=== PATIENT | female | born 1950 | race Caucasian/White ===

== ENCOUNTER 2019-08-09 07:02 | Outpatient (CLI) | payer BC ==
--- NOTE | 2019-08-09 08:03 | ULT ---
BILATERAL RENAL ULTRASOUND WITH RENAL DOPPLER: TECHNIQUE: Grayscale imaging of the kidneys is performed. Color flow, spectral waveform analysis and Doppler leora ging of the kidneys is also performed. HISTORY: Hypertension. COMPARISON: None. FINDINGS: Right kidney: Normal cortical echotexture. No hydronephrosis. Severe renal cortical thinning. Right kidney measurements: 9.1 x 4.3 x 4.4 cm. Left kidney: Normal cortical echotexture. No hydronephrosis severe renal cortical thinning. Left kidney measurements and 10.0 x 5.0 x 5.3 cm. Urinary bladder: Normal mucosa. Renal Doppler: Right renal artery velocity 105.8 cm/s Left renal artery velocity 67.3 cm/s Aorta 78.8 cm/s Right renal artery to aorta ratio: 1.3. Left renal artery to aorta ratio: 0.85. Arcuate artery resistive index: Right kidney: 0.66. Left kidney: 0.70. IMPRESSION: 1. Bilateral renal cortical thinning. 2. No hydronephrosis. 3. Arcuate artery resistive index is within normal limits. Transcribed Date/Time: 08/09/2019 8:43 AM
--- NOTE | 2019-08-09 08:13 | ULT ---
BILATERAL RENAL ULTRASOUND WITH RENAL DOPPLER: TECHNIQUE: Grayscale imaging of the kidneys is performed. Color flow, spectral waveform analysis and Doppler leora ging of the kidneys is also performed. HISTORY: Hypertension. COMPARISON: None. FINDINGS: Right kidney: Normal cortical echotexture. No hydronephrosis. Severe renal cortical thinning. Right kidney measurements: 9.1 x 4.3 x 4.4 cm. Left kidney: Normal cortical echotexture. No hydronephrosis severe renal cortical thinning. Left kidney measurements and 10.0 x 5.0 x 5.3 cm. Urinary bladder: Normal mucosa. Renal Doppler: Right renal artery velocity 105.8 cm/s Left renal artery velocity 67.3 cm/s Aorta 78.8 cm/s Right renal artery to aorta ratio: 1.3. Left renal artery to aorta ratio: 0.85. Arcuate artery resistive index: Right kidney: 0.66. Left kidney: 0.70. IMPRESSION: 1. Bilateral renal cortical thinning. 2. No hydronephrosis. 3. Arcuate artery resistive index is within normal limits. Transcribed Date/Time: 08/09/2019 8:44 AM
[2019-08-09 08:26] LABS: Bilirubin Negative (Negative); Blood, Urine Negative (Negative); Clarity Slightly Cloudy (Clear); Glucose, Urine (Dipstick) Negative (Negative); Leukocyte Negative (Negative); Nitrite Negative (Negative); Protein, Urine (Dipstick) Negative (Neg-Trace); Urobilinogen 0.2 mg/dL (Less than 2)
[2019-08-09 08:32] LABS: Hemoglobin 8.7 g/dL (12.0-16.0)
[2019-08-09 08:40] LABS: Albumin 4.3 g/dL (3.4-4.8); Anion Gap 15 mmol/L (10-20); BUN (Urea Nitrogen) 27 mg/dL (9.8-20.1); Calc. Creatinine Clearance 0 mL/min (70-130); Calcium 10.4 mg/dL (7.8-10.44); Carbon Dioxide 23 mmol/L (23-31); Chloride 111 mmol/L (98-107); Estimated GFR-MDRD 46; Glucose 102 mg/dL (80-115); Phosphorus 3.4 mg/dL (2.3-4.7); Potassium 4.4 mmol/L (3.5-5.1); Sodium 145 mmol/L (136-145)
[2019-08-09 08:42] LABS: RBC/HPF 0-3 HPF (0-3); WBC/HPF 0-3 HPF (0-3)
[2019-08-09 08:43] LABS: Squamous Epithelial 0-3 HPF (0-3)
[2019-08-09 08:44] LABS: Bacteria/HPF Rare-Few HPF (None Seen)
[2019-08-09 10:38] LABS: Creatinine, Urine 157.18 mg/dL (47-110)
[2019-08-10 15:38] LABS: ANA Symphony (Qualitative) Negative (Negative); ANA Symphony (Quantitative) 0.2 Ratio (< 0.7 Negative); dsDNA IgG Antibody 0.5 IU/mL (<10 Negative)
== END 2019-08-09 07:03 | disposition home or self-care (01) ==
LOC: SCSULT 07:02
PROVIDERS: ATTEND Internal Medicine Nephrology
DX: I12.9 Hypertensive chronic kidney disease with stage 1 through stage 4 chronic kidney disease, or unspecified chronic kidney disease (principal); N18.3 Chronic kidney disease, stage 3 (moderate); R60.9 Edema, unspecified
CPT/HCPCS: 36415; 76770; 80048; 81001; 82040; 82306; 82570; 83970; 84100; 84156; 85014; 85018; 86038; 86225; 93975

== ENCOUNTER 2020-08-07 06:20 | Outpatient (CLI) | payer BC ==
[2020-08-07 09:54] LABS: #Eosinphils 0.2 10x3/uL (0.0-0.5); #Monocytes 0.6 10x3/uL (0.0-1.1); #Neutrophils 3.2 10x3/uL (1.5-8.4); %Basophils 0.8 % (0.0-2.0); %Lymphocytes 26.6 % (18.0-47.0); %Monocytes 10.3 % (0.0-10.0); %Neutrophils 59.1 % (40.0-75.0); Hemoglobin 10.8 g/dL (12.0-16.0); Mean Corpuscular Hemoglobin 31.6 PG (27.0-33.0); Mean Corpuscular Volume 90.4 fl (80.0-100.0); Mean Platelet Volume 9.4 fl (7.4-10.4); Platelet Count 261 10x3/uL (130-400); RBC Distribution Width 12.1 % (11.5-14.5); Red Blood Cell (RBC) Count 3.42 10x6/uL (3.90-5.20); White Blood Cell (WBC) Count 5.3 10x3/uL (4.5-11.0)
[2020-08-07 10:01] LABS: ALT (SGPT) 42 U/L (8-55); AST (SGOT) 27 U/L (5-34); Albumin 4.4 g/dL (3.4-4.8); Alkaline Phosphatase 122 U/L (40-110); Bilirubin, Direct 0.1 mg/dL (0.1-0.3); Bilirubin, Total 0.3 mg/dL (0.2-1.2)
[2020-08-07 23:34] LABS: SARS-CoV-2 MS2 Positive; SARS-CoV-2 N Gene Negative; SARS-CoV-2 S Gene Negative; SARS-CoV-2 by NAA Not Detected (NotDetected); SARS-CoV-2 orf1ab Negative
== END 2020-08-07 06:21 | disposition home or self-care (01) ==
LOC: LABBT 06:20
PROVIDERS: ATTEND Surgery
DX: Z01.818 Encounter for other preprocedural examination (principal); Z01.812 Encounter for preprocedural laboratory examination; Z20.828 Contact with and (suspected) exposure to other viral communicable diseases; K80.20 Calculus of gallbladder without cholecystitis without obstruction
CPT/HCPCS: 80076; 85025; 87635; 93005; 93010; U0003

== ENCOUNTER 2020-08-10 06:54 | Day surgery (SDC) | payer BC ==
[2020-08-08 16:33] VITALS: BMI 29.5
[2020-08-10] MEDS ORDERED: Iothalamate Meglumine 60% 50 ML VIAL FS ONE (07:28)
[2020-08-10] MEDS ORDERED: Bupivacaine 0.25% HCL 30 ML VIAL ONE (07:30)
[2020-08-10] MEDS ORDERED: Lidocaine 1% w/Epinephrine 1:100K 20 ML VIAL ONE (07:30)
[2020-08-10] MEDS ORDERED: Midazolam HCl 2 mg/2 ml Vial ONE ×2 (07:31→08:07)
[2020-08-10] MEDS ORDERED: Fentanyl 100 MCG/2 ML VIAL ONE (07:31)
[2020-08-10] MEDS ORDERED: cefOXitin Sodium/Dextrose 2 GM/50 ML BAG ONE (07:41)
--- NOTE | 2020-08-10 09:30 | RAD ---
XR Cholangiogram in Surgery History: Cholangiogram in surgery Comparison: None. Findings: Intraoperative cholangiogram was obtained. Adequate contrast spillage from the common bile duct into the proximal small bowel. No intrahepatic biliary dilatation. Impression: Fluoroscopy for procedure purposes. Total fluoroscopy time: 1 second.
[2020-08-10] MEDS ORDERED: Ondansetron PF 4 MG/2 ML Vial ONE (10:16)
[2020-08-10] MEDS ORDERED: Glycopyrrolate 0.2 MG/ML 5 ML SYRINGE ONE (10:16)
[2020-08-10] MEDS ORDERED: Lidocaine 1% PF 5 ML VIAL ONE (10:16)
[2020-08-10] MEDS ORDERED: PROPOFOL 200 MG/20 ML VIAL ONE (10:16)
[2020-08-10] MEDS ORDERED: Dexamethasone 20 MG/5 ML VIAL ONE (10:16)
[2020-08-10] MEDS ORDERED: Rocuronium Bromide 10 MG/ML (10ML VIAL) ONE (10:16)
[2020-08-10] MEDS ORDERED: HYDROcodone/Acetaminophen 5/325 mg Tablet ONE (11:40)
--- NOTE | 2020-08-12 13:47 | OP ---
DATE OF PROCEDURE: 08/10/2020 PREOPERATIVE DIAGNOSES: Symptomatic cholelithiasis, liver cyst with elevated liver functions. PROCEDURES PERFORMED: Laparoscopic cholecystectomy with intraoperative cholangiogram, unroofing and biopsy of liver cyst. INDICATIONS: The patient is a 69-year-old female, who has been having episodic right upper quadrant pain, worse after eating. She had a CT that showed gallstones as well as a large liver cyst. FINDINGS: Thickened gallbladder wall. Negative cholangiogram. The cyst was intimately involved with the gallbladder and there was some expression of clear serous fluid from the cyst during removal of the gallbladder. There was a fairly thin-walled cyst cavity, but very large. DESCRIPTION OF PROCEDURE: After informed consent was obtained, the patient was taken to the operating room and given general endotracheal anesthesia, placed in the supine position. Abdomen was prepped and draped in the usual fashion. Local anesthesia was infiltrated subcutaneously and deep, and a subumbilical incision was performed. Subcu divided sharply. The fascia was grasped. Two stay sutures of 0 Vicryl placed through each side of midline. Midline incised. Digital palpation revealed no local adhesions. A blunt 12 mm trocar inserted. Pneumoperitoneum was created to a pressure of 15 mmHg. A 0-degree laparoscope inserted under direct vision, three 5-mm ports were placed subcostally. Gallbladder grasped, advanced superiorly. The peritoneum was dissected, and the cystic duct and cystic artery in critical view were developed. The artery was triply ligated and divided. The clip was placed at the base of the gallbladder on the cystic duct. An incision made in the cystic duct and an Arrow cholangiocatheter inserted. Intraoperative cholangiogram showed free flow in the duodenum, no filling defects, although the common duct seemed large. The duct was triply ligated and divided. The gallbladder was removed from its fossa utilizing electrocautery; however, it was intimately involved with a large thin-walled cyst, so we got into the cyst. There was quite a bit of serous fluid within the cyst. This was all aspirated. Once the gallbladder was removed, the cyst wall was unroofed and a piece of it was excised for biopsy. The cavity was thoroughly irrigated. The gallbladder and the cyst wall were placed in the endosac, removed from the abdomen through the umbilical port in the endosac. Hemostasis was assured. Trocars and retractors removed. Fascia was closed with interrupted 0 Vicryl suture. The skin was closed with interrupted 4-0 Rapide. Dermabond applied. The patient tolerated the procedure well, transferred to Recovery in good condition. Sponge and needle count verified correct x2. Job ID: [id number]
== END 2020-08-10 12:15 | disposition home or self-care (01) ==
LOC: SDC 06:54
PROVIDERS: ATTEND Surgery
PROC: 0FT44ZZ Resection of Gallbladder, Percutaneous Endoscopic Approach (ICD-10-PCS; principal; 2020-08-10)
PROC: BF131ZZ Fluoroscopy of Gallbladder and Bile Ducts using Low Osmolar Contrast (ICD-10-PCS; principal; 2020-08-10)
PROC: 0FB04ZX Excision of Liver, Percutaneous Endoscopic Approach, Diagnostic (ICD-10-PCS; principal; 2020-08-10)
DX: K80.12 Calculus of gallbladder with acute and chronic cholecystitis without obstruction (principal); K83.5 Biliary cyst; F32.9 Major depressive disorder, single episode, unspecified; I12.9 Hypertensive chronic kidney disease with stage 1 through stage 4 chronic kidney disease, or unspecified chronic kidney disease; N18.9 Chronic kidney disease, unspecified; D64.9 Anemia, unspecified; M10.9 Gout, unspecified; Z79.899 Other long term (current) drug therapy
CPT/HCPCS: 47532; 88304; 88307; J0694; J1100; J2250; J2405; J2704; J3010; S0020

== ENCOUNTER 2022-04-29 07:29 | Outpatient (CLI) | payer BC | END 2022-04-29 07:30 | disposition home or self-care (01) | LOC: NM 07:29 | PROVIDERS: ATTEND Internal Medicine Nephrology | DX: E21.3 Hyperparathyroidism, unspecified (principal) | CPT/HCPCS: 78072; A9500 ==

== ENCOUNTER 2022-09-08 17:40 | Outpatient (CLI) | payer BC ==
[2022-09-08 18:18] LABS: Hemoglobin 10.1 g/dL (12.0-15.5)
[2022-09-08 18:29] LABS: Anion Gap 13 mmol/L (10-20); BUN (Urea Nitrogen) 28 mg/dL (9.8-20.1); Calc. Creatinine Clearance 0 mL/min (70-130); Calcium 10.2 mg/dL (7.8-10.44); Carbon Dioxide 23 mmol/L (23-31); Chloride 108 mmol/L (98-107); Estimated GFR 50; Glucose 97 mg/dL (80-115); Potassium 3.7 mmol/L (3.5-5.1); Sodium 140 mmol/L (136-145)
== END 2022-09-08 17:41 | disposition home or self-care (01) ==
LOC: LABBT 17:40
PROVIDERS: ATTEND Specialist
DX: Z01.818 Encounter for other preprocedural examination (principal); D35.1 Benign neoplasm of parathyroid gland; R53.83 Other fatigue; E83.52 Hypercalcemia
CPT/HCPCS: 80048; 85014; 85018; 93005; 93010

== ENCOUNTER 2022-09-11 09:05 | Day surgery (SDC) | payer BC ==
[2022-09-11] MEDS ORDERED: Lidocaine 1% (PF) 30 ML VIAL ONE (10:17)
[2022-09-11] MEDS ORDERED: EPINEPHrine 1 MG/ML AMP ONE (10:17)
[2022-09-11] MEDS ORDERED: Fentanyl 250 MCG/5 ML VIAL ONE (10:29)
[2022-09-11] MEDS ORDERED: GLYCOPYRROLATE/PF 0.2 MG/ML VIAL ONE (10:56)
[2022-09-11] MEDS ORDERED: Ondansetron PF 4 MG/2 ML Vial ONE (10:56)
[2022-09-11] MEDS ORDERED: NEOSTIGMINE 3 MG/3 ML SYR 3 MG/3 ML SYRINGE ONE (10:56)
[2022-09-11] MEDS ORDERED: Phenylephrine 10 MG/ML VIAL ONE (10:56)
[2022-09-11] MEDS ORDERED: PROPOFOL 200 MG/20 ML VIAL ONE (10:56)
[2022-09-11] MEDS ORDERED: Dexamethasone 20 MG/5 ML VIAL ONE (10:56)
[2022-09-11] MEDS ORDERED: Rocuronium Bromide 10 MG/ML (10ML VIAL) ONE (10:56)
== END 2022-09-11 14:10 | disposition home or self-care (01) ==
LOC: SDC 09:05
PROVIDERS: ATTEND Specialist
PROC: 0GTP0ZZ Resection of Left Inferior Parathyroid Gland, Open Approach (ICD-10-PCS; principal; 2022-09-11)
DX: D35.1 Benign neoplasm of parathyroid gland (principal); E21.3 Hyperparathyroidism, unspecified; I10 Essential (primary) hypertension; J30.9 Allergic rhinitis, unspecified; M10.9 Gout, unspecified; Z79.899 Other long term (current) drug therapy; Z88.8 Allergy status to other drugs, medicaments and biological substances
CPT/HCPCS: 88305; C1776; J0171; J1100; J2001; J2370; J2405; J2704; J3010; J3490